=== PATIENT | female | born 1985 | race Caucasian/White ===

== ENCOUNTER 2020-10-14 02:36 | Emergency (ER) | payer BC, SELFPAY ==
--- NOTE | ~2020-10-14 | XR_ITS ---
XR knee RT min 4V 10/14/2020 03:09 INDICATION: Right knee pain PROCEDURE: 4 views right knee COMPARISON: No prior studies for comparison. FINDINGS: Fracture, dislocation or subluxation is not identified. No significant joint effusion. The soft tissues appear within normal limits. No foreign bodies are identified. IMPRESSION: 1: NO ACUTE BONE OR JOINT ABNORMALITY IDENTIFIED. Reviewed, dictated and finalized at location A.
[2020-10-14 02:40] VITALS: BP 127/63; PULSE 90; RESP 18; TEMP 36.1; O2SAT 96
--- NOTE | 2020-10-14 02:41 | ED.LOWEXIN ---
HPI - Extremity Injury (Lower) General Chief Complaint: Extremity Injury, Lower Stated Complaint: knee pain Time Seen by Provider: 10/14/20 02:41 Source: patient Mode of arrival: ambulatory Limitations: no limitations History of Present Illness HPI Narrative: Patient is a 35-year-old female who presents for evaluation of right knee pain. Patient states that she was getting down from a countertop when she felt pain and a popping sensation in her right knee. Since that time, she has been experiencing sharp, tingly type pain on the outside of her right knee. She denies any calf pain or swelling. No bruising. No fall. Patient has been ambulatory. She denies hip pain or back pain. Related Data Home Medications Medication Instructions Recorded Confirmed bupropion HCl [Wellbutrin XL] mg PO 10/14/20 Allergies Allergy/AdvReac Type Severity Reaction Status Date / Time No Known Allergies Allergy Verified 10/14/20 02:39 Review of Systems Review of Systems: Narrative: CONSTITUTIONAL: Denies fever CARDIOVASCULAR: Denies chest pain RESPIRATORY: Denies cough or dyspnea. GASTROINTESTINAL: Denies abdominal pain SKIN: Denies rash MUSCULOSKELETAL: Denies back pain, reports right knee pain NEUROLOGIC: Denies headache [facility] Social History Social History (Updated 10/14/20 @ 02:53 by Shelby Sevilla MD) Smoking status: Current every day smoker Tobacco type: cigarettes Substance use: never Living arrangements: with family Gender identity (if verbalized by the patient): Female Sexual Orientation (if Verbalized by the Patient): Straight or Heterosexual Exam Narrative: Exam Narrative: GENERAL: Awake, alert, conversant HEAD: Normocephalic, atraumatic. EYES: PERRLA and EOMI. ENT: Nares clear, no rhinorrhea or epistaxis. Mucous membranes moist. NECK: Supple. CHEST: No respiratory distress, breathing even and non labored HEART: Regular rate, sinus rhythm ABDOMEN:Non distended, non tender EXTREMITIES: Right knee pain, intact flexion and extension with active range of motion. There is tenderness to external rotation on the right lateral joint line. Patella is midline. No evidence of dislocation. No ecchymoses. Extremity is warm and well-perfused with intact distal sensation. SKIN: Warm, dry, no rash. NEURO:No focal deficits. Alert and oriented x3 Course Vital Signs Vital signs: Vital Signs Temperature 36.1 C L 10/14/20 02:40 Pulse Rate 90 10/14/20 02:40 Respiratory Rate 18 10/14/20 02:40 Blood Pressure 127/63 10/14/20 02:40 Pulse Oximetry 96 10/14/20 02:40 Temperature 36.1 C L 10/14/20 02:40 Pulse Rate 90 10/14/20 02:40 Respiratory Rate 18 10/14/20 02:40 Blood Pressure 127/63 10/14/20 02:40 Pulse Oximetry 96 10/14/20 02:40 MDM - Extremity Injury (Lower) MDM Narrative Medical decision making narrative: Patient presenting for evaluation of knee strain versus neuropathy. Dislocation and fracture seem less likely given no significant traumatic mechanism and patient is ambulatory. She is neurovascularly intact. X-ray is obtained and is negative for acute osseous abnormalities. Patient was given an SIS wrap that she may use for comfort. She was advised to rest, ice and elevate the extremity. She was given follow-up with orthopedic surgery. Differential Diagnosis Differential diagnosis: Likely acute internal derangement of knee Imaging Data My impression: RIght Knee: No acute osseous abnormality Discharge Plan Discharge Clinical Impression: Muscle strain of right knee Patient Disposition: Home, Self-Care Condition: Stable Instructions: Knee Pain (ED) Additional Instructions: Your x-ray showed no sign of dislocation or fracture. You may have a ligamentous injury to your knee, this will require follow-up with your primary care physician or your orthopedic physician. I have given you follow-up information. Please continue to ice, elevate your extremity and res
[2020-10-14] MEDS: ACETAMINOPHEN 500 MG TABLET 1000 MG PO (03:41)
[2020-10-14] MEDS: IBUPROFEN 400 MG TABLET PO (03:42)
[2020-10-14 04:54] VITALS: BP 121/52; PULSE 68; RESP 18; O2SAT 98
== END 2020-10-14 04:55 | disposition home or self-care (01) ==
PROVIDERS: Emergency Provider Emergency Medicine; PCP Internal Medicine
DX: S86.911A Strain of unspecified muscle(s) and tendon(s) at lower leg level, right leg, initial encounter (principal); F17.210 Nicotine dependence, cigarettes, uncomplicated; X50.9XXA Other and unspecified overexertion or strenuous movements or postures, initial encounter
CPT/HCPCS: 73564; 99283; A9270

== ENCOUNTER → 2020-10-24 14:51 | Outpatient (CLI) | payer BC, SELFPAY ==
--- NOTE | ~2020-10-24 | MR_ITS ---
EXAMINATION: MR knee RT wo con DATE: 10/24/2020 15:46 INDICATION: Right knee pain. TECHNIQUE: Magnetic resonance imaging (MRI) of the right knee was performed without intravenous contr ast. Sequences included axial PD-weighted FS FSE, coronal PD-weighted FSE and PD-weighted FS FSE, sag ittal PD-weighted FSE, and sagittal T2-weighted FS FSE. COMPARISON: Right knee radiographs 10/14/2020 FINDINGS: Medial compartment: Medial meniscus is normal. Medial compartment cartilage is normal. Lateral compartment: Lateral meniscus is normal. Lateral compartment cartilage is normal. Patellofemoral compartment: There is shallow partial-thickness cartilage loss of patellar medial and lateral facets and median ri dge with mild subchondral edema-like marrow signal intensity. Trochlear cartilage is normal. Ligaments and tendons: Anterior cruciate ligament is enlarged with increased signal intensity. Posterior cruciate ligament i s normal. There is edema around the medial collateral ligament, consistent with mild sprain (grade 1) . There are changes of prior sprain of fibular collateral ligament characterized by increased signal intensity proximally. There is mild patellar tendinopathy. Fluid: There is a moderate-sized knee joint effusion. There is mild prepatellar and superficial infrapatella r bursitis. Osseous/other: There is bone marrow edema at the posterior aspects of the medial and tibial condyles, consistent wit h contusions. IMPRESSION: 1. Enlarged anterior cruciate ligament with increased signal, consistent with partial tear. 2. Mild patellar chondrosis. 3. Moderate-sized knee joint effusion. Reviewed, dictated and finalized at location A. IMPRESSION: 1. Enlarged anterior cruciate ligament with increased signal, consistent with p artial tear. 2. Mild patellar chondrosis. 3. Moderate-sized knee joint effusion.
== END ==
PROVIDERS: Visit Provider Orthopaedic Surgery
DX: M25.461 Effusion, right knee (principal)
CPT/HCPCS: 73721

== ENCOUNTER → 2023-02-18 14:11 | Outpatient (CLI) | payer BC, SELFPAY ==
--- NOTE | ~2023-02-18 | MR_ITS ---
EXAMINATION: MR knee RT wo con DATE: 02/18/2023 14:50 INDICATION: Right knee pain TECHNIQUE: Magnetic resonance imaging (MRI) of the right knee was performed without intravenous contr ast. Sequences included coronal PD-weighted FSE, coronal PD-weighted FS FSE, sagittal T2-weighted FS E, sagittal PD-weighted FS FSE and axial PD weighted fat saturated FSE. COMPARISON: 10/24/2020 FINDINGS: Medial compartment: There is a complex longitudinal tear at the posterior horn which extends anteroinferiorly from the mi dportion of the superior articular surface. Articular cartilage is normal. Lateral compartment: Lateral meniscus is normal. Articular cartilage is normal. Patellofemoral compartment: Deep chondral ulceration measuring 9 mm craniocaudally and up to 3 mm in medial to lateral width at t he patellar apical ridge. Additional deep chondral ulceration and fissuring with underlying cortical irregularity and mild subarticular cystlike change at the inferior aspect of the lateral patellar fac et. Likely small deep chondral fissure at the inferior aspect of the medial trochlea. Ligaments and tendons: The prior thickened appearance of the anterior cruciate ligament has resolved. Normal appearance to t he ligament without evident tear. Posterior cruciate ligament is normal. The medial collateral ligame nt and fibular collateral ligament complex are normal. The extensor mechanism is normal. The visualiz ed medial and lateral hamstring tendons as well as the iliotibial band are normal. Fluid: Physiologic amount of fluid in the joint space. No loose osteochondral bodies identified. Osseous/other: There is red marrow reexpansion in the metadiaphyseal regions of the femur, tibia and fibula. No frac ture or pathologic marrow replacing process. IMPRESSION: 1. Complex tear at the posterior horn medial meniscus. 2. 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 Reviewed, dictated and finalized at location A. NGEUR OPERATOR IMPRESSION: 1. Complex tear at the posterior horn medial meniscus. 2. 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
== END ==
PROVIDERS: PCP Nurse Practitioner Family; Visit Provider Nurse Practitioner Family
DX: M25.561 Pain in right knee (principal); S83.231A Complex tear of medial meniscus, current injury, right knee, initial encounter; M17.11 Unilateral primary osteoarthritis, right knee; M22.41 Chondromalacia patellae, right knee
CPT/HCPCS: 73721

== ENCOUNTER 2023-08-02 02:33 | Emergency (ER) | payer BC, SELFPAY ==
--- NOTE | ~2023-08-02 | XR_ITS ---
Right Knee Technique: AP, lateral, and oblique views were obtained. Clinical History: Pain Findings: No fracture or dislocation is seen. Osseous alignment is anatomic. Joint spaces are preserv ed without degenerative or erosive change. Soft tissues are unremarkable. No joint effusion is seen. Impression: Unremarkable right knee radiographs. Reviewed, dictated and finalized at location . Impression: Unremarkable right knee radiographs.
[2023-08-02 02:34] VITALS: BP 134/46; PULSE 72; RESP 18; TEMP 36.2; O2SAT 100
--- NOTE | 2023-08-02 02:56 | ED.GENADULT ---
HPI - General Adult General Chief complaint: Extremity Injury, Lower Stated complaint: R knee injury Time Seen by Provider: 08/02/23 02:46 History of Present Illness HPI narrative: This is a 38-year-old female presenting with right knee pain. Patient was getting up when she felt 3 pops in her right knee. She then developed some pain. She has been able to bear weight. No numbness or tingling weakness foot. Patient has appointment to see Dr. Dickson on Tuesday due to chronic right knee pain. Related Data Home Medications Medication Instructions Recorded Confirmed multivitamin 1 tablet PO DAILY 04/25/23 04/25/23 Allergies Allergy/AdvReac Type Severity Reaction Status Date / Time No Known Allergies Allergy Verified 08/02/23 02:50 [facility] Past Medical History Medical History Acute injury of anterior cruciate ligament of right knee Coughing Knee effusion, right Medial meniscus tear Right knee pain Family History Family History Mother Depression Cerebrovascular accident Sibling Hypertension Other Diabetes mellitus Social History Social History Smoking packs per day: 1 Smoking cigarettes per day: 20.0 Years smoked: 18 Smoking pack-years: 18.00 Smoking status: Current every day smoker Tobacco type: cigarettes Alcohol intake: never Substance use: never Substance use type: does not use Do You Feel Safe in your Home?: Yes Lack of Transportation: No Lack of Food: Never True Current Housing: I Have Housing Concerned About Future Housing: No Difficulty Paying Gas/Electric Bills: No Difficulty Paying for Meds: No Currently Unemployed: No Education: Associate Degree Difficulty w/ Childcare or Family Care: No Living arrangements: with family Gender identity (if verbalized by the patient): Female Sexual Orientation (if Verbalized by the Patient): Straight or Heterosexual Exam Narrative: APPEARANCE: No apparent distress. Head: atraumatic. EYES: EOMI, NOSE: Atraumatic NECK: Trachea midline RESPIRATORY: No increased rate of breathing CARDIOVASCULAR: RRR, ABDOMINAL: Non-distended MUSCULOSKELETAl: Focal exam of the right knee revealed no obvious deformity or bruising. Some pain with active and passive range of motion. No obvious joint laxity although physical exam is limited by body habitus. Foot is neurovascularly intact NEURO: Alert. Moving 4/4 extremities SKIN:: Warm, dry. Normal color PSYCHIATRIC: Normal affect Course Vital Signs Vital signs: Vital Signs Temperature 97.2 F L 08/02/23 02:34 Pulse Rate 72 08/02/23 02:34 Respiratory Rate 18 08/02/23 02:34 Blood Pressure 134/46 L 08/02/23 02:34 Pulse Oximetry 100 08/02/23 02:34 Oxygen Delivery Room Air 08/02/23 02:34 Temperature 97.2 F L 08/02/23 02:34 Pulse Rate 72 08/02/23 02:34 Respiratory Rate 18 08/02/23 02:34 Blood Pressure 134/46 L 08/02/23 02:34 Pulse Oximetry 100 08/02/23 02:34 Oxygen Delivery Room Air 08/02/23 02:34 Medical Decision Making MDM Narrative Medical decision making narrative: -Course: 38-year-old presenting with right knee pain. X-rays negative for fracture. Pain was treated in the ED. She is able to bear weight has appropriate follow-up with Orthopedic surgery. Given return precautions. -DDX includes but is not limited to: Knee sprain, internal derangement of the knee, bony injury -Co-morbidities complicating care: chronic knee pain, obesity -Independent interpretation of studies: prelim x-ray read shows no acute fracture -Interventions: Motrin Tylenol Robaxin -Shared decision making / Disposition:Discharged. -RX Motrin Tylenol Robaxin Vital Signs Vital Signs: Vital Signs Temperature 97.2 F L 08/02/23 02:34 Pulse Rate 72 08/02/23 02:34 Respiratory
[2023-08-02] MEDS: IBUPROFEN 400 MG TABLET 800 MG PO (03:17)
[2023-08-02] MEDS: methocarbamoL 750 MG TABLET 1500 MG PO (03:18)
== END 2023-08-02 03:47 | disposition home or self-care (01) ==
PROVIDERS: Emergency Provider Emergency Medicine
DX: M25.561 Pain in right knee (principal); F17.210 Nicotine dependence, cigarettes, uncomplicated
CPT/HCPCS: 73562; 99283; A9270

== ENCOUNTER 2023-08-18 08:31 | Outpatient (CLI) | payer BC, SELFPAY ==
--- NOTE | ~2023-08-18 | MR_ITS ---
MRI of the right knee Clinical history: ACL sprain Technique: Coronal proton density and proton density-weighted images, sagittal proton-density and T2 fat-sat images, and axial proton-density fat-saturated images were acquired. COMPARISON: 02/18/2023 Findings: Anterior and posterior cruciate ligaments are intact. Medial collateral ligament and the la teral collateral ligament complex are intact. Popliteus tendon is intact. Probable focal tear of the body segment of the medial meniscus, which is mildly truncated. Lateral me niscus intact. There is focal grade 4 chondral lesion at the patellar apex. Possible small chondroid loose body heaven cent to the medial patellar facet. There is moderate chondromalacia the inferior aspect of the femora l trochlea centrally. Articular cartilage in the medial lateral compartments is well preserved. Extensor mechanism is intact. Small joint effusion present. No Paz's cyst. Impression: Suspected tear of the body segment of the medial meniscus which is mildly truncated. Grade 4 chondral lesion patellar apex with possible small chondral loose body adjacent to the medial patellar facet. Moderate chondromalacia of the inferior femoral trochlea, as above. Small joint effusion. Reviewed, dictated and finalized at location . Impression: Suspected tear of the body segment of the medial meniscus which is mildly trunc ated. Grade 4 chondral lesion patellar apex with possible small chondral loose body a djacent to the medial patellar facet. Moderate chondromalacia of the inferior femoral trochlea, as above. Small joint effusion.
== END 2023-08-18 08:32 ==
LOC: MICIMG 08:32
PROVIDERS: PCP Orthopaedic Surgery; Visit Provider Orthopaedic Surgery
DX: M94.261 Chondromalacia, right knee (principal); M25.461 Effusion, right knee
CPT/HCPCS: 73721

== ENCOUNTER 2023-09-26 13:15 | Outpatient (CLI) | payer BC, SELFPAY ==
--- NOTE | 2023-09-26 12:45 | ECG_ITS ---
Test Date: 2023-09-26 13:26:26 Measurements Intervals [place] Rate: 71 P: 26 [place]: 166 QRS: 16 QRSD: 74 T: 25 QT: 393 QTc: 430 Interpretive Statements SINUS RHYTHM WITH SINUS ARRHYTHMIA LOW QRS VOLTAGE IN PRECORDIAL LEADS BASELINE ARTIFACT- I, II, III, AVR, AVL, AVF BORDERLINE ECG No previous ECG available for comparison Electronically Signed On 09-26-2023 13:36:52 CDT by Sean Santos D.O.
== END 2023-09-26 13:16 | disposition home or self-care (01) ==
LOC: ANHSURGERY 13:16
PROVIDERS: PCP Internal Medicine Infectious Disease; Visit Provider Orthopaedic Surgery
DX: Z01.818 Encounter for other preprocedural examination (principal); F17.200 Nicotine dependence, unspecified, uncomplicated
CPT/HCPCS: 93005

== ENCOUNTER 2023-09-28 00:21 | Day surgery (SDC) | payer BC, SELFPAY ==
[2023-09-19 10:54] VITALS: BMI 46.5
--- NOTE | 2023-09-19 10:58 | PC.NURSE ---
Report to the Outpatient Waiting Room, entrance under the green pavilion located off [facility], at time 12:00PM on date [id number] . Planned Procedure Time: ___2:00PM___. Time changes happen often and if your time is changed the preop area will call you the afternoon before. - You and your visitor will be asked to self-screen and do not enter if you have any COVID symptoms. - A mask is optional within the hospital at this time. Patients may have clear liquids (water, carbonated beverages, clear teas, apple juice) until 3 hours prior to surgery with a maximum of 20 ounces. (STOP LIQUIDS AT 11:00AM) - No food from midnight until time of surgery - Take the following medications with a SIP of water the morning of surgery: N/A DO NOT STOP ANY OF YOUR OTHER PRESCRIPTION MEDICATIONS PRIOR TO SURGERY ?EXCEPT THE FOLLOWING Medications to discontinue per physician MULTIVITAMIN Date to take last [id number] Please no make-up, nail japanese, hairspray, perfume, deodorant, or body powder the day of surgery. No jewelry (including any body piercings) or valuables the day of surgery, leave them at home. Please take a shower or bath the night before, or the morning of, surgery with an antibacterial soap. Wear comfortable, loose fitting clothing. - Jewelry must be removed prior to entering the operating room. Rings and piercings that are not removed may be cut off. - The hospital will not accept responsibility for valuables. - Please leave all valuables, including medications, at home the day of surgery. If you are going home after surgery, a licensed four horse hitch driver must drive you home. - NO public transportation without another adult if you receive anesthesia. - We recommend that an adult stay with you for 24 hours following discharge. - We also recommend that you do not drive, make important decision, drink alcoholic beverages, or take any drugs that were not prescribed by your health care provider for at least 24 hours after your discharge time. Follow any additional instructions given to you from your surgeon. If you or anyone in your household have experienced Covid symptoms in the past week, please notify your surgeon or the nurse liaison at the phone number below for possible testing. Telephone instructions given to PATIENT (ASHLEY)___and asked if any additional questions and then verbalized understanding. Patient advised to call surgeon office or pre surgery nurse liaison [phone] if any additional questions.
[2023-09-28] VITALS (9 sets, daily range): BP systolic 112–128; BP diastolic 60–103; PULSE 55–88; RESP 15–22; TEMP 36.2–36.3; O2SAT 93–99
--- NOTE | 2023-09-28 07:14 | WPDHPUPDATE1 ---
History and Physical Update Update Date/Time: 09/28/23 07:14 History and Physical has been reviewed, including an updated exam of the patient. There are NO changes in the patient's condition. Risks, benefits, and alternatives have been discussed and questions answered. Patient agrees to proceed with procedure.
[2023-09-28] MEDS: ACETAMINOPHEN 500 MG TABLET 1000 MG PO (12:18)
[2023-09-28] MEDS: CELECOXIB 200 MG CAPSULE PO (12:18)
[2023-09-28] MEDS: LACTATED RINGERS 1,000 ML 30 ML IV CONT ×2 (12:18→15:24)
--- NOTE | 2023-09-28 12:41 | WPDANESEPPF ---
Anes - Initial Pre Proc Eval Procedure: Operation Date: 09/28/23 14:00 Proposed Procedures p Right Knee Arthroscopy - Butch Martin MD Date/Time: 09/28/23 12:41 Surgeon: Butch Martin MD Pre Op Diagnosis: Right Knee medial meniscus tear Patient Data Age: 38 Gender: F Height: 1.65 m Weight: 124.1 kg Last Vital Signs Temp 36.3 C L 09/28/23 12:15 Pulse 64 09/28/23 12:15 Resp 18 09/28/23 12:15 BP 121/69 09/28/23 12:15 Pulse Ox 99 09/28/23 12:15 O2 Del Method Room Air 09/28/23 12:15 Allergies Allergy/AdvReac Type Severity Reaction Status Date / Time No Known Allergies Allergy Verified 09/28/23 12:26 Home Medications Medication Instructions Recorded Confirmed Type multivitamin 1 tablet PO DAILY 04/25/23 09/28/23 History levonorgestrel 21 mcg/24 hr (up to 1 device intrauterine ONCE 09/26/23 09/28/23 History 8 years) 52 mg intrauterine device (Mirena) Patient hx anesthesia problems: none Family hx anesthesia problems: none Results Review: All pre-operative results and documents have been reviewed as part of the pre-operative evaluation. FORMERLY [facility] Past Medical History Medical History Acute injury of anterior cruciate ligament of right knee Coughing Knee effusion, right Medial meniscus tear Morbid obesity RAYA (obstructive sleep apnea) Right knee pain Smoking Surgical History Surgical History (Updated 09/28/23 @ 12:41 by Heraclio Chao MD) Hx of appendectomy Family History Family History Mother Depression Cerebrovascular accident Sibling Hypertension Other Diabetes mellitus Social History Social History Smoking packs per day: 1 Smoking cigarettes per day: 20.0 Years smoked: 20 Smoking pack-years: 20.00 Smoking status: Current every day smoker Tobacco type: cigarettes Second hand tobacco smoke exposure: No Alcohol intake: never Substance use: never Substance use type: does not use Do You Feel Safe in your Home?: Yes Lack of Transportation: No Lack of Food: Never True Current Housing: I Have Housing Concerned About Future Housing: No Difficulty Paying Gas/Electric Bills: No Difficulty Paying for Meds: No Currently Unemployed: No Education: Associate Degree Difficulty w/ Childcare or Family Care: No Living arrangements: with family Gender identity (if verbalized by the patient): Female Sexual Orientation (if Verbalized by the Patient): Straight or Heterosexual Spiritual care concerns: No Anes - Eval Final PreProcedure Day of Procedure 09/28/23 12:41 Patient weight: morbidly obese Heart: regular rate and rhythm Lungs: clear to auscultation Airway: Mallampati scale class II Neurological: alert and oriented Last oral intake: >/= 8 hours ASA classification: III Emergent: no Anesthetic plan: proceed Anesthesia type and monitoring: general LMA and standard monitoring Results Review: All pre-operative results and documents have been reviewed as part of the pre-operative evaluation. Informed Consent: The patient's anesthetic plan and its attendant risks and benefits were discussed with the patient/family/POA. Questions were solicited and answers provided to the satisfaction of the patient/family/POA.
[2023-09-28] MEDS: ceFAZolin 3 GM/D5W 100 ML 100 ML IVPB (13:51)
--- NOTE | 2023-09-28 14:01 | W.PM.PROC2 ---
Procedure Note - Detailed Date of Procedure 09/28/23 Pre-op Diagnosis Right Knee medial meniscus tear Post-op Diagnosis Same Procedure Performed RIGHT KNEE SCOPE Surgeon Butch Martin MD Anesthesia General Description of Procedure PATIENT WAS TAKEN TO THE OR. RIGHT LEG WAS PREPPED AND DRAPED STERILE. TROCARS WERE PLACED IN THE USUAL FASHION. CAMERA WAS INTRODUCED. THERE WAS MINIMAL CHONDROMALACIA TO THE PATELLA FEMORAL JOINT. THERE WAS A LOT OF SYNOVITIS IN ALL COMPARTMENTS. THE MEDIAL COMPARTMENT SHOWED MINIMAL CHONDROMALACIA TO THE MEDIAL FEMORAL CONDYLE. A SHAVER WAS USED TO PREFORM A CHONDROPLASTY. THERE WAS A COMPLEX MEDIAL MENISCUS TEAR. THE TEAR WAS COMPRISED OF A FLAP TEAR FROM THE MAIN BODY OF THE MENISCUS. ON FURTHER INSPECTION THERE WAS ALSO A TRUNCATED TEAR TO THE MENISCAL ROOT. THE TEARS WERE RESECTED WITH A BITER AND A SHAVER DOWN TO A SMOOTH BASE. THERE WAS A PARTIAL TEAR TO THE ACL. MOSTLY IT WAS INTACT. DIRECT VIEW WITH AN ANTERIOR DRAWER TEST SHOWED THE ACL TO BE FUNCTIONAL WITH A GOOD END POINT. THE TEAR WAS DEBRIDED AND A SYNOVECTOMY WAS PREFORMED. THE LATERAL MENISCUS WAS NOT TORN. THE LATERAL COMPARTMENT HAD MINIMAL CHONDROMALACIA. THE PATELLO FEMORAL JOINT UNDERWENT CHONDROPLASTY. THERE WAS A CHONDRAL DEFECT OF THE MEDIAL FACET AT THE SUPERIOR POLE. ASIDE FROM THIS, THERE WAS OTHERWISE MINIMAL CHONDROMALACIA AT THE TROCHLEA AND THE PATELLA. SYNOVECTOMY WAS PREFORMED IN THE SUPERIOR MEDIAL COMPARTMENT. THE WOUNDS WERE APPROXIMATED WITH 4.0 NYLON. STERILE DRESSING WAS APPLIED. PATIENT WAS EXTUBATED. Estimated Blood Loss 5 Complications No immediate complications Condition Stable Disposition PACU
[2023-09-28] MEDS: BUPivacaine HCL 0.5% 10 ML AMP 30 ML INFILTRATE (15:10)
[2023-09-28] MEDS: fentaNYL CITRATE INJ (*CRX) 100 MCG/2 ML VIAL 25 MCG IV PUSH (15:36)
[2023-09-28] MEDS: ONDANSETRON INJ 4 MG/2 ML VIAL IV PUSH (15:41)
[2023-09-28] MEDS: diphenhydrAMINE HCl INJ 50 MG/ML VIAL 25 MG IV PUSH (15:50)
[2023-09-28] MEDS: oxyCODONE HCL (*CRX) 5 MG TAB IR PO (16:41)
== END 2023-09-28 17:22 | disposition home or self-care (01) ==
PROVIDERS: PCP Internal Medicine Infectious Disease; Visit Provider Orthopaedic Surgery
PROC: (CPT 29870; principal; 2023-09-28 14:00)
DX: S83.231A Complex tear of medial meniscus, current injury, right knee, initial encounter (principal); M65.861 Other synovitis and tenosynovitis, right lower leg; M22.41 Chondromalacia patellae, right knee; X50.0XXA Overexertion from strenuous movement or load, initial encounter; G47.33 Obstructive sleep apnea (adult) (pediatric); F17.210 Nicotine dependence, cigarettes, uncomplicated; E66.01 Morbid (severe) obesity due to excess calories; Z68.42 Body mass index [BMI] 45.0-49.9, adult
CPT/HCPCS: 29881; A9270; J0690; J1100; J1200; J2250; J2405; J2704; J3010; J7120

== ENCOUNTER 2024-10-03 15:25 | Outpatient (CLI) | payer BC, SELFPAY ==
--- NOTE | ~2024-10-03 | XR_ITS ---
XR sacroiliac joints min 3V 10/03/2024 15:58 Indication: Polyarthralgias Procedure: 3 view sacroiliac joints Comparison: No prior studies for comparison. Findings: Sacroiliac joints are symmetric. No significant narrowing, ankylosis, erosion or sclerosis. IUD present. Impression: 1: No significant abnormality of the sacroiliac joints. Reviewed, dictated and finalized at location B. Impression: 1: No significant abnormality of the sacroiliac joints.
--- NOTE | ~2024-10-03 | XR_ITS ---
EXAM: XR foot LT min 3V, XR foot RT min 3V DATE: 10/03/2024 15:58 HISTORY: Polyarthralgia . COMPARISON: None available. FINDINGS: Normal mineralization. No fracture or dislocation. No lytic or blastic lesion. Mild degene rative change at the bilateral MTP joints and multiple midfoot joints. Moderate bilateral plantar ent hesopathy. Mild bilateral Achilles enthesopathy. No erosion or periosteal change. Soft tissues within normal limits. IMPRESSION: No radiographic evidence of psoriatic arthritis in the feet. Mild polyarticular osteoarth ritis. Moderate plantar and mild Achilles enthesopathy. Reviewed, dictated and finalized at location K. IMPRESSION: No radiographic evidence of psoriatic arthritis in the feet. Mild p olyarticular osteoarthritis. Moderate plantar and mild Achilles enthesopathy.
--- NOTE | ~2024-10-03 | XR_ITS ---
XR hip RT min 2V 10/03/2024 15:58 Indication: Polyarthralgias Procedure: 2 views right hip Comparison: No prior studies for comparison. Findings: Mild osteoarthritis of the right hip. IUD partially visualized. No fracture, subluxation or dislocation. No soft tissue foreign bodies. Impression: 1: Mild osteoarthritis of the right hip. Reviewed, dictated and finalized at location B. Impression: 1: Mild osteoarthritis of the right hip.
== END 2024-10-03 15:26 | disposition home or self-care (01) ==
LOC: MICIMG 15:26
PROVIDERS: PCP Internal Medicine Infectious Disease; Visit Provider Internal Medicine
DX: M16.11 Unilateral primary osteoarthritis, right hip (principal); M25.572 Pain in left ankle and joints of left foot; M25.571 Pain in right ankle and joints of right foot; M53.3 Sacrococcygeal disorders, not elsewhere classified
CPT/HCPCS: 72202; 73502; 73630